=== PATIENT | female | born 1950 | race Caucasian/White ===

== ENCOUNTER → 2018-02-21 12:15 | Outpatient (CLI) | payer MEDICARE, OTHER, SELFPAY | PROVIDERS: PCP Family Medicine; Visit Provider Internal Medicine | DX: R20.0 Anesthesia of skin (principal) | CPT/HCPCS: 95886; 95911 ==

== ENCOUNTER → 2025-07-21 16:14 | Outpatient (CLI) | payer MEDICARE, SELFPAY ==
[2025-07-21 17:26] LABS: Appearance Urine UA CLOUDY; Bilirubin Urine UA NEGATIVE (NEGATIVE); Color Urine UA YELLOW; Glucose Urine UA NEGATIVE (Negative); Ketones Urine UA NEGATIVE (NEGATIVE); Leukocyte Esterase Urine UA 3+ (NEGATIVE); Nitrite Urine UA NEGATIVE (Negative); Occult Blood Urine UA 1+ (Negative); Protein Urine UA NEGATIVE (Negative); Specific Gravity Urine UA <=1.005 (1.000-1.035); Urobilinogen Urine UA 0.2 E.U./dL (0.2)
[2025-07-21 17:27] LABS: pH Urine UA 6.0 (4.5-8.0)
[2025-07-21 17:39] LABS: Culture Indicated Urine Specimen Cultured
== END ==
PROVIDERS: Visit Provider Obstetrics & Gynecology Gynecology
DX: N81.11 Cystocele, midline (principal); N39.0 Urinary tract infection, site not specified; N32.81 Overactive bladder
CPT/HCPCS: 81001; 87086